=== PATIENT | male | born 1990 | race Hispanic/Latino ===

== ENCOUNTER 2024-01-25 14:40 | Emergency (ER) | payer MEDICARE, MEDICAID | END 2024-01-25 16:35 | disposition home or self-care (01) | LOC: CSHERS 14:40 | DX: R11.0 Nausea (principal); F17.210 Nicotine dependence, cigarettes, uncomplicated; F17.290 Nicotine dependence, other tobacco product, uncomplicated | CPT/HCPCS: 99283 ==